=== PATIENT | female | born 1975 | race American Indian/Alaskan Native ===

== ENCOUNTER 2021-03-06 13:52 | Emergency (ER) | payer OTHER ==
--- NOTE | 2021-03-06 16:59 | Emergency Department Report ---
ED General Adult HPI - General Chief complaint: High BP Stated complaint: HIGH BLOOD PRESSURE Time Seen by Provider: 03/06/21 16:53 Source: patient Mode of arrival: Ambulatory Limitations: No Limitations - History of Present Illness Initial comments: 45-year-old -[place] female presents to the emergency room concern for high blood pressure. Patient states that she was having a nagging headache that was a 6 out of 10 and decided to check her blood pressure. Patient states at that time her blood pressure was 181/101. Patient did come to the emergency room triage blood pressure is 179/84. Patient denies any chest pain no shortness of breath no nausea no vomiting. Patient denies any lower leg edema no change of vision. She does admit to a slight headache that is improving. Patient reports a family history of hypertension but person has no past medical history. Patient states she is not allergic to any medication and currently sandhya es no meds on a daily basis. Onset/Timin -: days(s) Location: head Radiation: non-radiation Severity scale (0 -10): 4 Quality: dull Consistency: constant, now resolved Improves with: none Worsens with: none Associated Symptoms: denies other symptoms Treatments Prior to Arrival: none - Related Data Previous Rx's Medication Instructions Recorded Last Taken Type Naproxen Sodium (Nf) [Anaprox DS] 550 mg PO BID PRN #14 tablet 06/09/13 Unknown Rx methOCARBAMOL [Robaxin] 750 mg PO Q8H PRN #21 tablet 06/09/13 Unknown Rx hydroCHLOROthiazide 12.5 mg PO QDAY #30 capsule 03/06/21 Unknown Rx [Hydrochlorothiazide] Allergies Allergy/AdvReac Type Severity Reaction Status Date / Time No Known Allergies Allergy Unverified 06/09/13 18:21 ED Review of Systems ROS: Stated complaint: HIGH BLOOD PRESSURE Other details as noted in HPI Comment: All other systems reviewed and negative ED Past Medical Hx - Past Medical History Previous Medical History?: No - Surgical History Past Surgical History?: No - Social History Smoking Status: Never Smoker Substance Use Type: Alcohol - Medications Home Medications: Home Medications Medication Instructions Recorded Confirmed Last Taken Type Naproxen Sodium (Nf) [Anaprox DS] 550 mg PO BID PRN #14 tablet 06/09/13 Unknown Rx methOCARBAMOL [Robaxin] 750 mg PO Q8H PRN #21 tablet 06/09/13 Unknown Rx hydroCHLOROthiazide 12.5 mg PO QDAY #30 capsule 03/06/21 Unknown Rx [Hydrochlorothiazide] ED Physical Exam - General Limitations: No Limitations General appearance: alert, in no apparent distress - Head Head exam: Present: atraumatic, normocephalic - Eye Eye exam: Present: normal appearance - ENT ENT exam: Present: mucous membranes moist - Neck Neck exam: Present: normal inspection - Respiratory Respiratory exam: Present: normal lung sounds bilaterally. Absent: respiratory distress - Cardiovascular Cardiovascular Exam: Present: regular rate, normal rhythm. Absent: systolic murmur, diastolic murmur, rubs, gallop - GI/Abdominal GI/Abdominal exam: Present: soft, normal bowel sounds - Extremities Exam Extremities exam: Present: normal inspection, full ROM. Absent: pedal edema - Back Exam Back exam: Present: normal inspection, full ROM - Neurological Exam Neurological exam: Present: alert, oriented X3, CN II-XII intact, normal gait - Psychiatric Psychiatric exam: Present: normal affect, normal mood - Skin Skin exam: Present: warm, dry, intact, normal color. Absent: rash ED Course Vital Signs 03/06/21 15:08 Temperature 98.7 F Pulse Rate 82 Respiratory 18 Rate Blood Pressure 179/84 O2 Sat by Pulse 100 Oximetry ED Medical Decision Making - Medical Decision Making 45-year-old -[place] female presents to the emergency room concern for high blood pressure. Patient states that she was having a nagging headache that was a 6 out of 10 and decided to check her blood pressure. Patient states at that time her blood pressure was 181/101. Patient did come to the emergency room triage blood pressure is 179/84. Patient denies any chest pain no shortness of breath no nausea no vomiting. Patient denies any lower leg edema no change of vision. She does admit to a slight headache that is improving. Patient reports a family history of hypertension but person has no past medical history. Patient states she is not allergic to any medication and currently takes no meds on a daily basis. Patient will be treated for hypertension. Patient be discharged home on hydrochlorothiazide 12.5 mg daily. Discussed with patient to decrease her sodium intake increase her fluid intake is very important for her to follow-up in the next 3 days to have her blood pressure rechecked at her primary care provider. This provider looked up [facility] in [place] and they open at 8 AM tomorrow. Critical care attestation.: If time is entered above; I have spent that time in minutes in the direct care of this critically ill patient, excluding procedure time. ED Disposition Clinical Impression: Hypertension Disposition: DC-01 TO HOME OR SELFCARE Is pt being admited?: No Does the pt Need Aspirin: No Condition: Stable Instructions: Hypertension, Adult, [id number], Managing Your Hypertension, Hypertension (ED) Additional Instructions: Please take medication as prescribed. Please follow a low-sodium diet. It is important you follow-up with your primary care provider in the next 3 days to have your blood pressure rechecked and managed. I was of operation for [facility] is 8 AM per their website. Prescriptions: hydroCHLOROthiazide [Hydrochlorothiazide] 12.5 mg PO QDAY #30 capsule Referrals: PRIMARY CARE, [Primary Care Provider] - 3-5 Days [facility] [Provider Group] - 3-5 Days Forms: Work/School Release Form(ED)
[2021-03-06 17:15] VITALS: BP 157/84
== END 2021-03-06 17:15 | disposition home or self-care (01) ==
LOC: ED 13:52
DX: I10 Essential (primary) hypertension (principal); Z79.899 Other long term (current) drug therapy
CPT/HCPCS: 99282